=== PATIENT | female | born 1990 | race Caucasian/White ===

== ENCOUNTER 2018-10-21 18:32 | Emergency (ER) | payer OTHER ==
[~2018-10-21] VITALS: Ht 160 cm; Wt 65.8 kg
[2018-10-21 19:17] VITALS: BP 130/79
--- NOTE | 2018-10-21 19:50 | NUR ---
27/F PRESENTS TO ED, C/O SHARP INTERMITTENT LLQ PAIN, X 2MONTHS, WORSENING SINCE LAST NIGHT. TOOK TYLENOL WITH LITTLE RELIEF LAST NIGHT. PT WENT TO URGENT CARE TODAY, WAS TOLD TO GO TO ER. LMP "UNKNOWN, SPOTTING ALL SEPTEMBER." URINE PREG NEGATIVE. PT DENIES FEVER, N/V/D, CONSTIPATION OR DYSURIA. PT AOX4, GCS 15, RR EVEN AND UNLABORED. LUNG SOUNDS CLEAR BL. BS ACTIVE X4, ABD SOFT ROUND TENDER ON LLQ. DENIES MED HX OR RX.
[2018-10-21 22:18] VITALS: BP 114/64
== END 2018-10-21 22:18 | disposition home or self-care (01) ==
LOC: MED 18:32
DX: K59.00 Constipation, unspecified (principal); N93.9 Abnormal uterine and vaginal bleeding, unspecified
CPT/HCPCS: 76856; 81002; 81025; 99284; Q0092; 74018